=== PATIENT | female | born 1950 | race Caucasian/White ===

== ENCOUNTER 2024-04-09 18:36 | Emergency (ER) | payer MEDICARE, OTHER, SELFPAY ==
[2024-04-09 18:41] VITALS: BP 122/60; PULSE 67; RESP 18; TEMP 36.5; O2SAT 98; BMI 27.7
--- NOTE | 2024-04-09 18:55 | DI.RAD.S_ITS ---
PROCEDURE: XR CHEST 1V INDICATIONS: chest pain TECHNIQUE: One view of the chest was acquired. COMPARISON: None. FINDINGS: Surgical changes and devices: None. Lungs and pleura: Lungs are clear. No pleural effusions or pneumothorax. Mediastinum: Mediastinal contours appear normal. Heart size is normal. Bones and chest wall: No suspicious bony lesions. Overlying soft tissues appear unremarkable. IMPRESSION: No acute cardiopulmonary abnormality is seen. Dictated by: Mane Baker M.D. on 04/09/2024 at 18:29 Approved by: Mane Baker M.D. on 04/09/2024 at 18:30
[2024-04-09 19:38] LABS: Add Manual Diff / Slide Review NO; Basophils Absolute Auto 100 /uL (0-100); Basophils Percent Auto 0.7 % (0-2); Eosinophils Absolute Auto 100 /uL (0-450); Eosinophils Percent Auto 0.6 % (2-4); Hemoglobin 15.2 g/dL (12.0-16.0); INR 0.9 (0.9-1.3); Lymphocytes Absolute Auto 1200 /uL (1100-4500); Lymphocytes Percent Auto 14.5 % (25-40); Mean Corpuscular HGB Conc 33.7 % (30-36); Mean Corpuscular Hemoglobin 31.6 PG (26-34); Mean Corpuscular Volume 93.8 fL (80-100); Monocytes Absolute Auto 900 /uL (0-900); Monocytes Percent Auto 11.3 % (3-14); Neutrophils Absolute Auto 5900 /uL (1500-7000); Neutrophils Percent Auto 72.9 % (50-75); Platelet Count 246 X10^3/uL (150-400); Prothrombin Time 10.4 SECONDS (9.4-12.5); Red Cell Distribution Width 14.3 % (11.6-14.8); White Blood Cell Count 8.1 X10^3/uL (4.5-11.0)
[2024-04-09 19:40] LABS: PTT Partial Thromboplastin Tim 27 SECONDS (25.1-36.5)
[2024-04-09 19:45] LABS: Alanine Aminotransferase 33 IU/L (<35); Albumin 4.7 g/dL (3.5-5.0); Albumin Globulin Ratio 1.4 (1.0-2.8); Alkaline Phosphatase 77 U/L (38-126); Aspartate Aminotransferase 41 IU/L (14-36); BUN Creatinine Ratio 34.1 (6-22); Bilirubin Total 0.7 mg/dL (0.2-1.3); Blood Urea Nitrogen 30 mg/dL (7-17); Calcium 9.7 mg/dL (8.4-10.2); Carbon Dioxide 27 mmol/L (22-32); Chloride 106 mmol/L (98-107); Creatine Kinase 56 U/L (30-135); Estimated Glomerular Filt Rate > 60 mL/min (>60); Globulin 3.3 g/dL (1.7-4.1); Glucose 108 mg/dL (80-110); HEMOLYSIS 35 (0-50); Lipase 141 U/L (23-300); Magnesium 2.4 mg/dL (1.6-2.3); Potassium 4.4 mmol/L (3.4-5.1); Sodium 140 mmol/L (137-145)
--- NOTE | 2024-04-09 19:50 | ED.SYNCOPE ---
HPI - Syncope General Chief Complaint: Syncope Stated Complaint: LOC Time Seen by Provider: 04/09/24 19:49 Source: patient and family Mode of arrival: Ambulatory Limitations: no limitations History of Present Illness HPI narrative: [age]-year-old female with history of kidney stones who presents for complaint of syncopal episode. Patient is visiting the area from [place], she was at a memorial service today she had been sitting for a prolonged period of time went to stand up to talk to someone felt very lightheaded like she might pass out started to get tunnel vision sat back down but became more lightheaded and her daughter caught her may laid her down. She would loss of consciousness for about a minute or 2 then return back to normal. She states took about 20 minutes to get totally back to normal. No tonic-clonic shaking or other changes. No incontinence. She has felt some palpitations little fatigue and sweatiness on and off for the past 3 weeks. She felt fine this morning. She denies fevers chills cold cough or congestion. No chest pain or shortness of breath, no nausea or vomiting. No issues with bowel movements. She has had issues with an urgent bladder then has had bladder prolapse surgery. She denies any swelling in extremities. No prior history of cardiac arrhythmias. She has had stress test and myocardial perfusion in the last several years which she states were negative. She states she has a known left bundle-branch block. She states no daily medications. She has had bladder prolapse surgery and tubal ligation and laser surgery for her eyes. No known allergies. No tobacco, no alcohol though she had a sip of alcohol today no recreational drugs. She has set up a appointment with her primary care physician next Thursday because she had been feeling palpitations. Related Data Previous Rx's Medication Instructions Recorded diltiazem HCl 120 mg 120 mg PO DAILY #20 caps 04/09/24 capsule,extended release 24 hr (Cardizem CD) Allergies Allergy/AdvReac Type Severity Reaction Status Date / Time No Known Drug Allergies Allergy Verified 04/09/24 18:55 Review of Systems Review of Systems ROS Unobtainable: All systems reviewed & are unremarkable except as noted in HPI and below Patient History Social History Smoking Status: Never smoker Smoking Status: Never smoker alcohol intake frequency: holidays/special occasions only Substance Use Type: does not use Exam Narrative Exam Narrative: GENERAL: Alert and oriented x three, well-appearing female in mild distress. HEENT: Head normocephalic, atraumatic, EOMI, pupils reactive, face symmetric, moist mucous membranes NECK: Supple, full range of motion CARDIOVASCULAR: Irregularly regular hythm rate control without murmurs, rubs or gallops. No JVD. No edema bilateral lower extremities. RESPIRATORY: Breath sounds equal bilaterally, no wheezes rales or rhonchi. ABDOMEN: Soft, nontender. Normoactive bowel sounds all 4 quadrants. No guarding or rebound, rigidity, no mass : No CVA tenderness EXTREMITIES: Normal range of motion, no clubbing or edema. Neurovascularly intact NEUROLOGICAL: Cranial nerves II through XII grossly intact. Moving all extremities SKIN: Warm, dry, no petechiae, no rashes or lesions. Initial Vital Signs Initial Vital Signs: Vital Signs Temperature 97.7 F 04/09/24 18:41 Pulse Rate 67 04/09/24 18:41 Respiratory Rate 18 04/09/24 18:41 Blood Pressure 122/60 04/09/24 18:41 Pulse Oximetry 98 04/09/24 18:41 Oxygen Delivery Method Room Air 04/09/24 18:41 Scores CHADS-VASc Congestive heart failure: no Hypertension: no Age 75 years or older: no Diabetes mellitus: no Stroke, TIA, or TE: no Vascular disease: no Age 65 to 74 years: yes Sex category (female): Female CHADS-VASc Score: 2 Course Orders Ordered: Discontinued Medications Aspirin (Aspirin 81 Mg Chew Tab) 324 mg PO NOW ONE Stop: 04/09/24 18:56 Last Admin: 04/09/24 20:44 Dose: Not Given Documented By: LORI Vital Signs Vital signs: Vital Signs - 8 hr 04/09/24 18:41 04/09/24 20:04 Temperature 97.7 F Pulse Rate 67 67 Respiratory Rate 18 23 Blood Pressure 122/60 Pulse Oximetry 98 94 Oxygen Delivery Method Room Air MDM - Syncope Lab Data 04/09/24 19:20 04/09/24 19:20 Labs: Lab Results 04/09/24 Range/Units 19:20 WBC 8.1 (4.5-11.0) X10^3/uL RBC 4.80 (4.0-5.2) X10^6/uL Hgb 15.2 (12.0-16.0) g/dL Hct 45.0 (36-46) % MCV 93.8 (80-100) fL MCH 31.6 (26-34) PG MCHC 33.7 (30-36) % RDW 14.3 (11.6-14.8) % Plt Count 246 (150-400) X10^3/uL Neut % (Auto) 72.9 (50-75) % Lymph % (Auto) 14.5 L (25-40) % [place] % (Auto) 11.3 (3-14) % Eos % (Auto) 0.6 L (2-4) % Baso % (Auto) 0.7 (0-2) % Neut # (Auto) 5900 (0597-6266) /uL Lymph # (Auto) 1200 (5778-3544) /uL [place] # (Auto) 900 (0-900) /uL Eos # (Auto) 100 (0-450) /uL Baso # (Auto) 100 (0-100) /uL PT 10.4 (9.4-12.5) SECONDS INR 0.9 (0.9-1.3) APTT 27 (25.1-36.5) SECONDS Sodium 140 (137-145) mmol/L Potassium 4.4 (3.4-5.1) mmol/L Chloride 106 (98-107) mmol/L Carbon Dioxide 27 (22-32) mmol/L BUN 30 H (7-17) mg/dL Creatinine 0.88 (0.52-1.04) mg/dL Estimated GFR > 60 (>60) mL/min BUN/Creatinine Ratio 34.1 H (6-22) Glucose 108 (80-110) mg/dL Calcium 9.7 (8.4-10.2) mg/dL Magnesium 2.4 H (1.6-2.3) mg/dL Total Bilirubin 0.7 (0.2-1.3) mg/dL AST 41 H (14-36) IU/L ALT 33 (<35) IU/L Alkaline Phosphatase 77 (38-126) U/L Total Creatine Kinase 56 (30-135) U/L Troponin I < 0.012 (0.01-0.034) ng/mL Total Protein 8.0 (6.3-8.2) g/dL Albumin 4.7 (3.5-5.0) g/dL Globulin 3.3 (1.7-4.1) g/dL Albumin/Globulin Ratio 1.4 (1.0-2.8) Lipase 141 (23-300) U/L Imaging Data Chest x-ray: Radiologist's Impression: [address] [address] XRay Report Signed Patient: Zoë Marsh MR#: [id number] : 1950 Acct:[id number] Age/Sex: 73 / F Date of Service: 04/09/24 Loc: ED Accession Number: [id number] Procedure: XR chest 1V Ordering Provider: Morena Ace D.O. PROCEDURE: XR CHEST 1V INDICATIONS: chest pain TECHNIQUE: One view of the chest was acquired. COMPARISON: None. FINDINGS: Surgical changes and devices: None. Lungs and pleura: Lungs are clear. No pleural effusions or pneumothorax. Mediastinum: Mediastinal contours appear normal. Heart size is normal. Bones and chest wall: No suspicious bony lesions. Overlying soft tissues appear unremarkable. IMPRESSION: No acute cardiopulmonary abnormality is seen. Dictated by: Mane Baker M.D. on 04/09/2024 at 18:29 Approved by: Mane Baker M.D. on 04/09/2024 at 18:30 ECG Data Attestation: I personally reviewed and interpreted this ECG as follows: Prior ECG tracings: not available for review Interpretation: AFib, right axis deviation, rate 87 QRS of 128 QTC 488, no acute ST elevation depression. Patient does not have any priors for comparison. [facility] Narrative Medical decision making narrative: 73-year-old female who had sounds like a syncopal episode today, with EMS her blood pressure was 88/70 heart rate was 86 glucose was 110 with a 91% room air. Vitals have continued to be overall appropriate here she has not had any persistent hypotension. Patient's white count is 8.1, hemoglobin is 15 with platelets of 246 creatinine 0.88 with a BUN of 30 glucose of 108, sodium of 140 potassium 4.4 chloride of 106 and a CO2 of 27, AST with-41 ALT is 33 Mag was slightly elevated at 2.4, troponins less than 0.12- LFTs. Chest x-ray is negative. EKG shows AFib but rate controlled she has been rate controlled here in the department throughout her stay. Patient has not had any sort of cardiac evaluation for rate since her stress test in the last couple years. But she has had palpitations on and off for the past several weeks suspect she has been in atrial fibrillation during that time. That would make her not a candidate for cardioversion she has not on any anticoagulation. I suspect her atrial fibrillation along with seated for a long time and then standing suddenly in combination with being at [facility] likely contributed to her syncopal episode. She is felt significantly improved and ambulated in the department without issue since the event earlier today. Discussed with patient can start a low-dose Cardizem for rate control, patient is reluctant to start any anticoagulation her mother had intracranial hemorrhage. She did not take a prescription for Cardizem but she is unsure if she will start it we discussed checking her heart rate and blood pressure keeping a log to share with her physician. CHADS-VASC score is 2, do recommend anticoagulation. Discussed risks versus benefits she does have follow up set up on Thursday with primary care we will defer final judgment to them. Discussed with her and daughter did discuss observation but patient prefers for discharge. She is ambulating in the department without issue. Discharge Plan Departure Patient Disposition: Home Clinical Impression: Atrial fibrillation, Syncope Instructions: DI for Syncope in Adults (Fainting) Activity Restrictions/Additional Instructions: You were found to be in atrial fibrillation today although rate controlled, I suspect with your symptoms of palpitations for the last several weeks this is not new today. You need to talk with your physician on your appointment at Thursday risks versus benefits of starting anticoagulation to prevent strokes. You have been prescribed a very low dose medication to help keep your rate at an appropriate speed. This medication can affect blood pressure but we are using a low dose today to try to keep you from becoming hypotensive. A printed prescription is included if you decide to start it. Please return for recurrent symptoms, fast or persistently elevated heart rate, new chest pain, shortness of breath, lightheadedness or passing out, nausea vomiting, new swelling in extremities or other new or concerning changes. Prescriptions: New diltiazem HCl [Cardizem CD] 120 mg capsule,extended release 24hr 120 mg PO DAILY Qty: 20 0RF Stand Alone Forms: Patient Portal/API
[2024-04-09 19:55] LABS: Troponin I < 0.012 ng/mL (0.01-0.034)
--- NOTE | 2024-04-09 20:02 | PC.NURSE ---
Dr Ace in to evaluate pt
[2024-04-09 20:04] VITALS: PULSE 67; RESP 23; O2SAT 94
[2024-04-09 20:30] VITALS: PULSE 63; RESP 21; O2SAT 93
[2024-04-09 20:31] VITALS: BP 140/74; PULSE 79; RESP 21; O2SAT 92
== END 2024-04-09 20:45 | disposition home or self-care (01) ==
PROVIDERS: Emergency Provider Emergency Medicine
DX: R55 Syncope and collapse (principal); I48.91 Unspecified atrial fibrillation
CPT/HCPCS: 36415; 71045; 80053; 82550; 83690; 83735; 84484; 85025; 85610; 85730; 93005; 99283; 99284